=== PATIENT | female | born 1955 | race Two or more races ===

== ENCOUNTER 2024-08-17 17:26 | Emergency (ER) | payer OTHER ==
[~2024-08-17] VITALS: Ht 154.9 cm; Wt 72.6 kg
[2024-08-17] MEDS ORDERED: FAMOtidine 10 MG/ML (4ML VIAL) IV ONE (19:00)
[2024-08-17] MEDS ORDERED: ASPIRIN 81 MG TABLET.EC PO ONE (19:00)
[2024-08-17] MEDS ORDERED: FAMOTIDINE/PF 20 MG/2 ML VIAL ONE (19:31)
[2024-08-17 19:37] LABS: HEMATOCRIT 42.2 % (36.0-45.00); HEMOGLOBIN 14.5 g/dL (12.0-15.00); MEAN CELL VOLUME 91.1 fL (80.00-100.00); MEAN CORPUSCULAR HEMOGLOBIN 31.2 pg (27.00-32.0); MEAN CORPUSCULAR HGB CONC 34.3 g/dl (32.0-36.0); PLATELET COUNT 268 K/uL (150-450); RED BLOOD COUNT 4.64 M/uL (4.00-6.00); RED CELL DISTRIBUTION WIDTH 15.2 % (11.5-14.5)
[2024-08-17 19:57] LABS: INR 0.99; PARTIAL THROMBOPLASTIN TIME 28.2 SECONDS (22.0-34.0); PROTHROMBIN TIME 10.8 SECONDS (9.0-11.5)
[2024-08-17 20:01] LABS: BILIRUBIN TOTAL 0.45 mg/dL (0.3-1.2); CALCIUM 9.2 mg/dL (8.5-10.1); CREATININE SERUM 0.88 mg/dL (0.55-1.02); GFR 63.34; GLOBULINA 3.2 G/DL (2.4-3.5); POTASSIUM 3.73 mEq/L (3.5-5.1); TOTAL PROTEIN 7.2 gm/dL (6.4-8.2)
[2024-08-17 21:56] LABS: PH,URINE 5.5 (5.0-8.0); URINE APPEARANCE Clear; URINE BILIRRUBIN Negative (NEGATIVE); URINE BLOOD Negative; URINE COLOR Yellow; URINE GLUCOSE Negative (NEGATIVE); URINE KETONE 15 (NEGATIVE); URINE LEUKOCYTE Small; URINE NITRATE Negative; URINE PROTEIN Negative (NEGATIVE)
[2024-08-17 22:00] LABS: URINE BACTERIA 28.1 uL (0.0-1933); URINE EPITHELIAL CELLS 14.7 uL (0.0-38.8); URINE RBC 2.7 uL (0.0-20.8); URINE WBC 40.1 uL (0.0-23.2)
[2024-08-17 22:20] LABS: URINE CAST 0.88 uL (0.0-1.40)
[2024-08-17] MEDS ORDERED: PEPCID AC20 MG PO (22:29)
[2024-08-17] MEDS ORDERED: BACTRIM DS TAB1 EACH PO (22:29)
== END 2024-08-17 22:37 | disposition home or self-care (01) ==
LOC: ER 17:27
PROVIDERS: General Practice
DX: N39.0 Urinary tract infection, site not specified (principal); R10.13 Epigastric pain